=== PATIENT | female | born 1955 | race Caucasian/White ===

== ENCOUNTER 2016-06-26 23:22 | Emergency (ER) | payer MEDICAID | END 2016-06-27 02:26 | disposition home or self-care (01) | LOC: ER 23:22 | DX: J32.1 Chronic frontal sinusitis (principal); J32.0 Chronic maxillary sinusitis; S01.412A Laceration without foreign body of left cheek and temporomandibular area, initial encounter; W01.198A Fall on same level from slipping, tripping and stumbling with subsequent striking against other object, initial encounter; Y92.009 Unspecified place in unspecified non-institutional (private) residence as the place of occurrence of the external cause; E11.9 Type 2 diabetes mellitus without complications; I10 Essential (primary) hypertension; I71.9 Aortic aneurysm of unspecified site, without rupture; J98.4 Other disorders of lung; Z95.5 Presence of coronary angioplasty implant and graft; Z86.718 Personal history of other venous thrombosis and embolism; Z86.711 Personal history of pulmonary embolism; Z79.01 Long term (current) use of anticoagulants; Z79.84 Long term (current) use of oral hypoglycemic drugs; Z79.899 Other long term (current) drug therapy | CPT/HCPCS: 36415; 70450; 80053; 81001; 82150; 82607; 82746; 83540; 83690; 84466; 85025; 85610; 85730; 87088 ==